=== PATIENT | female | born 1990 | race Caucasian/White ===

== ENCOUNTER 2024-10-21 01:22 | Emergency (ER) | payer OTHER ==
[2024-10-21 01:36] VITALS: RESP 18
--- NOTE | 2024-10-21 01:51 | ED ---
ENT HPI - General Chief complaint: Dental/Oral Stated complaint: Tooth Pain Time Seen by Provider: 10/21/24 01:40 Source: patient, RN notes reviewed Mode of arrival: ambulatory Limitations: no limitations - History of Present Illness Initial comments: This is a 33-year-old female presenting with right lower dental pain (04/11) x 1 day. Patient endorses recent use of antibiotics and Motrin with no relief. States she is unable to sleep due to the pain. Denies fever, chills, dyspnea, dysphagia, trismus, drooling, elevation of floor of mouth. MD complaint: tooth pain (1) Onset/Timin -: days(s) 1 - Missing tooth, TTP Severity scale (1-10): 10 Consistency: constant - Related Data Previous Rx's Medication Instructions Recorded Cephalexin [Keflex] 500 mg PO Q8HR #21 cap 01/06/16 Naproxen 500 mg PO Q12HR PRN #20 tab 01/06/16 Ranitidine HCl [Zantac] 150 mg PO HS #30 tab 01/06/16 Amoxic-Pot Clav 875-125Mg 1 tab PO Q12HR 1 Days #14 tab 10/21/24 [Augmentin 875-125] Ibuprofen [Motrin] 400 mg PO Q8HR PRN #30 tab 10/21/24 Allergies Allergy/AdvReac Type Severity Reaction Status Date / Time No Known Allergies Allergy Verified 10/21/24 01:36 Review of Systems ROS Statement: Those systems with pertinent positive or pertinent negative responses have been documented in the HPI. ROS Other: All systems not noted in ROS Statement are negative. Past Medical History Past Medical History: No Reported History History of Any Multi-Drug Resistant Organisms: None Reported Past Surgical History: No Surgical Hx Reported Past Psychological History: No Psychological Hx Reported Smoking Status: Vaper Past Alcohol Use History: Occasional Past Drug Use History: Marijuana General Exam Limitations: no limitations General appearance: alert, in no apparent distress Head exam: Present: atraumatic, normocephalic, other (Positive moderate right mandibular facial edema and tenderness) Eye exam: Present: normal appearance, PERRL, EOMI. Absent: scleral icterus, conjunctival injection, periorbital swelling ENT exam: Present: mucous membranes moist, other (Positive right lower missing second molar with tenderness in the area of missing tooth and gingiva as well as tooth anterior to this.) Neck exam: Present: normal inspection. Absent: tenderness, meningismus, lymphadenopathy Respiratory exam: Present: normal lung sounds bilaterally. Absent: respiratory distress, wheezes, rales, rhonchi, stridor Cardiovascular Exam: Present: regular rate, normal rhythm, normal heart sounds. Absent: systolic murmur, diastolic murmur, rubs, gallop, clicks GI/Abdominal exam: Present: soft, normal bowel sounds. Absent: distended, te nderness, guarding, rebound, rigid Extremities exam: Present: normal inspection, full ROM, normal capillary refill. Absent: tenderness, pedal edema, joint swelling, calf tenderness Back exam: Present: normal inspection Neurological exam: Present: alert, oriented X3, CN II-XII intact Psychiatric exam: Present: normal affect, normal mood Skin exam: Present: warm, dry, intact, normal color. Absent: rash Course Vital Signs 10/21/24 01:33 Temperature 98.8 F Pulse Rate 76 Respiratory 18 Rate Blood Pressure 158/92 O2 Sat by Pulse 99 Oximetry Medical Decision Making - Medical Decision Making Was pt. sent in by a medical professional or institution (, [facility], C[facility] SCR[facility]ER, urgent care, hospital, or fdc...) When possible be specific @ -No Did you speak to anyone other than the patient for history (EMS, parent, family, police, friend...)? What history was obtained from this source @ -No Did you review nursing and triage notes (agree or disagree)? Why? @ -I reviewed and agree with nursing and triage notes Were old charts reviewed (outside hosp., previous admission, EMS record, old EKG, old radiological studies, urgent care reports/EKG's, fdc records)? Report findings @ -No old charts were reviewed Differential Diagnosis (chest pain, altered mental status, abdominal pain women, abdominal pain men, vaginal bleeding, weakness, fever, dyspnea, syncope, headache, dizziness, GI bleed, back pain, seizure, CVA, palpatations, mental health, musculoskeletal)? @ -Interval abscess, periapical abscess, gingivitis, ANUG, Valente's angina, dent al nanci, this is not an exhaustive list EKG interpreted by me (3pts min.). @ -Not done X-rays interpreted by me (1pt min.). @ -None done CT interpreted by me (1pt min.). @ -None done U/S interpreted by me (1pt. min.). @ -None done What testing was considered but not performed or refused? (CT, X-rays, U/S, labs)? Why? @ -None What meds were considered but not given or refused? Why? @ -None Did you discuss the management of the patient with other professionals (professionals i.e. Dr., PA, CARD SCRAPER, lab, RT, psych nurse, social insurance analyst, land developer, teacher, real estate officer, mattress spring encaser)? Give summary @ -No Was smoking cessation discussed for >3mins.? @ -No Was critical care preformed (if so, how long)? @ -No Were there social determinants of health that impacted care today? How? (Homelessness, low income, unemployed, alcoholism, drug addiction, transportation, low edu. Level, literacy, decrease access to med. care, custodial, rehab)? @ -No Was there de-escalation of care discussed even if they declined (Discuss DNR or withdrawal of care, Hospice)? DNR status @ -No What co-morbidities impacted this encounter? (DM, HTN, Smoking, COPD, CAD, Cancer, CVA, ARF, Chemo, Hep., AIDS, mental health diagnosis, sleep apnea, morbid obesity)? @ -None Was patient admitted / discharged? Hospital course, mention meds given and route, prescriptions, significant lab abnormalities, going to OR and other pertinent info. @ -Patient provided p.o. [place] and Augmentin. Supraperiosteal block with bupivacaine performed with pain going from 10/10 to 2/10 with significant relief noted by patient. Augmentin Motrin 400 sent to patient's pharmacy. Advised alternate Tylenol/Motrin every 4 hours for pain as well as warm salt water swishes. Follow-up with dentist for definitive care/treatment. Discussed hallie ent with Dr. Torres. Undiagnosed new problem with uncertain prognosis? @ -No Drug Therapy requiring intensive monitoring for toxicity (Heparin, Nitro, Insulin, Cardizem)? @ -No Were any procedures done? @ -No Diagnosis/symptom? @ -Gingival abscess Acute, or Chronic, or Acute on Chronic? @ -Acute Uncomplicated (without systemic symptoms) or Complicated (systemic symptoms)? @ -Uncomplicated Side effects of treatment? @ -No Exacerbation, Progression, or Severe Exacerbation? @ -No Poses a threat to life or bodily function? How? (Chest pain, [place], [place], pneumonia, PE, COPD, DKA, ARF, appy, cholecystitis, CVA, Diverticulitis, Homicidal, Suicidal, threat to staff... and all critical care pts) @ -No Disposition Clinical Impression: Gingival abscess Disposition: HOME SELF-CARE Condition: Good Instructions (If sedation given, give patient instructions): Dental Abscess (ED) Additional Instructions: Swish warm salt water for 10 minutes up to 4 times daily. Follow-up with dentist for definitive care. Prescriptions: Amoxic-Pot Clav 875-125Mg [Augmentin 875-125] 1 tab PO Q12HR 1 Days #14 tab Ibuprofen [Motrin] 400 mg PO Q8HR PRN #30 tab PRN Reason: Pain Is patient prescribed a controlled substance at d/c from ED?: No Referrals: None,Stated [Primary Care Provider] - 1-2 days Junior Ramires DDS [STAFF PHYSICIAN] - 1-2 days Time of Disposition: 02:59
[2024-10-21] MEDS: BUPIVACAINE (PF) 0.25% 30 ML VIAL SQ ONE (02:08)
[2024-10-21] MEDS: AMOXIC-POT CLAV 875-125MG 1 EACH TAB PO STA (02:08)
[2024-10-21] MEDS: HYDROcodone/APAP 5-325MG 1 EACH TAB PO STA (02:08)
[2024-10-21 03:22] VITALS: BP 131/90; PULSE 79; TEMP 97.9
== END 2024-10-21 03:11 | disposition home or self-care (01) ==
LOC: EC 01:22
DX: K05.219 Aggressive periodontitis, localized, unspecified severity (principal); F17.290 Nicotine dependence, other tobacco product, uncomplicated
CPT/HCPCS: 99283; 96372; J0665